=== PATIENT | female | born 2000 | race Caucasian/White ===

== ENCOUNTER → 2021-01-26 | Outpatient (CLI) | payer BC ==
[~2021-01-26] MED LIST: AFRIN NASAL SPR30 ML; CLARITIN10 MG PO; CLEOCIN HCL300 MG PO; NORCO 5-325 TA1 EACH PO
== END ==
LOC: EMI 16:27
DX: G43.709 Chronic migraine without aura, not intractable, without status migrainosus (principal)
CPT/HCPCS: 70551